=== PATIENT | male | born 1935 | race Caucasian/White ===

== ENCOUNTER 2018-02-15 15:59 | Inpatient (IN) | payer OTHER ==
[~2018-02-15] VITALS: Ht 160 cm; Wt 70.4 kg
[2018-02-15 17:46] LABS: HEMATOCRIT 47.5 % (38.0-50.0); HEMOGLOBIN 16.4 G/DL (12.5-16.6); MCH 36.4 PG (29.0-34.0); MCHC 34.5 G/DL (30.0-36.0); MCV 105.3 FL (86-99); PLATELET COUNT 155 K/uL (156-360); RBC DIS.WIDTH-CV 14.4 % (11.8-14.6); RBC DIS.WIDTH-SD 56.6 % (39-53); RED BLOOD COUNT 4.51 M/uL (4.00-5.50); WHITE BLOOD COUNT 5.9 K/uL (4.1-10.2)
[2018-02-15 17:53] LABS: CHLORIDE 101 mEq/L (99-109); POTASSIUM 4.2 mEq/L (3.7-5.4); SODIUM 139 mEq/L (136-147)
[2018-02-15 17:55] LABS: GLUCOSE 115 mg/dL (70-99)
[2018-02-15 17:59] LABS: CREATININE 1.1 mg/dL (0.6-1.3); GFR ESTIMATE (CALCULATED) > 59 mL/min/ (58.99-99999)
[2018-02-15 18:00] LABS: UREA NITROGEN (BUN) 22 mg/dL (9-23)
[2018-02-15 18:32] LABS: APPEARANCE SL.HAZY ((CLEAR)); BILIRUBIN NEGATIVE; BLOOD SMALL; COLOR YELLOW ((YELLOW)); GLUCOSE (STRIP) NEGATIVE; KETONES 5; LEUKOCYTES NEGATIVE; NITRITE NEGATIVE; PROTEIN (STRIP) 100; SPECIFIC GRAVITY 1.024 (1.000-1.030); UROBILINOGEN 0.2 MG/DL (0.2-1.0)
[2018-02-15 18:38] LABS: BACTERIA NONE SEEN /HPF; EPITHELIAL CELLS RARE /HPF; MUCUS 1+ /LPF; UCUL ADDED? NO; WHITE BLOOD CELLS 0-5 /HPF (0-5)
[2018-02-15] MEDS ORDERED: FLOMAX0.4 MG PO (18:50)
[2018-02-15] MEDS ORDERED: VITAMIN B-1100 MG PO (18:51)
[2018-02-15] MEDS ORDERED: ALTACE10 MG PO (18:51)
[2018-02-15] MEDS ORDERED: LIPITOR80 MG PO (18:51)
[2018-02-15] MEDS ORDERED: SOTALOL120 MG PO (18:51)
[2018-02-15] MEDS ORDERED: ELIQUIS5 MG PO (18:51)
[2018-02-15] MEDS ORDERED: TYLENOL REGULA325 MG PO (18:52)
[2018-02-15 21:04] LABS: HDL CHOLESTEROL 50 MG/DL (Desirable>=40); LDL CHOLESTEROL 62 mg/dL (Desirable<100); NON-HDL CHOLESTEROL 86 mg/dL (Desirable<160); TOTAL CHOLESTEROL 136 mg/dL (Desirable<200); TRIGLYCERIDES 118 MG/DL (Normal: <150)
[2018-02-15 21:28] VITALS: BP 130/77
[2018-02-15 23:52] VITALS: BP 100/55
[2018-02-16 03:29] VITALS: BP 117/65
[2018-02-16 06:27] LABS: HEMATOCRIT 42.7 % (38.0-50.0); MCH 34.9 PG (29.0-34.0); MCV 105.7 FL (86-99); PLATELET COUNT 118 K/uL (156-360); RBC DIS.WIDTH-CV 14.5 % (11.8-14.6); RBC DIS.WIDTH-SD 56.4 % (39-53); RED BLOOD COUNT 4.04 M/uL (4.00-5.50); WHITE BLOOD COUNT 3.9 K/uL (4.1-10.2)
[2018-02-16 06:29] LABS: HEMOGLOBIN 14.1 G/DL (12.5-16.6)
[2018-02-16 06:52] LABS: ALBUMIN 3.4 G/DL (3.2-4.8); ALKALINE PHOSPHATASE 45 IU/L (3-129); ALT (GPT) 20 IU/L (3-49); AST (GOT) 30 IU/L (2-34); CHLORIDE 101 MEQ/L (99-109); CREATININE 1.1 MG/DL (0.6-1.3); GFR ESTIMATE (CALCULATED) > 59 mL/min/ (58.99-99999); POTASSIUM 4.2 MEQ/L (3.7-5.4); SODIUM 135 MEQ/L (136-147); TOTAL BILIRUBIN 0.5 MG/DL (0.0-1.0); UREA NITROGEN (BUN) 26 mg/dL (9-23)
[2018-02-16 06:57] LABS: GLUCOSE 385 mg/dL (70-99)
[2018-02-16 07:22] VITALS: BP 130/74
[2018-02-16 11:03] LABS: HEMOGLOBIN A1c (GLYCOHEMOGLOB) 6.4 % (Below 5.7)
[2018-02-16 15:56] VITALS: BP 91/56
[2018-02-16 20:09] VITALS: BP 100/67
[2018-02-17] VITALS: BP 102/67
[2018-02-17 03:53] VITALS: BP 103/72
[2018-02-17 06:03] LABS: BASOPHIL (%) 0 % (0-1); EOSINOPHIL (%) 0 % (0-5); HEMATOCRIT 42.3 % (38.0-50.0); HEMOGLOBIN 14.3 G/DL (12.5-16.6); IMMATURE GRANULOCYTE (%) 0.4 % (0.0-0.7); LYMPHOCYTE (%) 11.4 % (15-42); LYMPHOCYTE COUNT 0.8 K/uL (1.0-2.8); MCH 35.7 PG (29.0-34.0); MCHC 33.8 G/DL (30.0-36.0); MCV 105.5 FL (86-99); MONOCYTE (%) 3.6 % (3-12); MONOCYTE COUNT 0.3 K/uL (0-0.8); NEUTROPHIL (%) 84.6 % (45-76); NEUTROPHIL COUNT 6.3 K/uL (1.8-6.4); PLATELET COUNT 125 K/uL (156-360); RBC DIS.WIDTH-CV 14.2 % (11.8-14.6); RBC DIS.WIDTH-SD 55.7 % (39-53); RED BLOOD COUNT 4.01 M/uL (4.00-5.50); WHITE BLOOD COUNT 7.4 K/uL (4.1-10.2)
[2018-02-17 06:28] LABS: CHLORIDE 102 MEQ/L (99-109); CREATININE 0.9 MG/DL (0.6-1.3); GFR ESTIMATE (CALCULATED) > 59 mL/min/ (58.99-99999); GLUCOSE 210 mg/dL (70-99); MAGNESIUM 1.9 mg/dl (1.3-2.7); POTASSIUM 4.4 MEQ/L (3.7-5.4); SODIUM 136 MEQ/L (136-147); UREA NITROGEN (BUN) 28 mg/dL (9-23)
[2018-02-17 07:26] VITALS: BP 114/64
[2018-02-17 11:10] VITALS: BP 112/58
[2018-02-17 17:17] VITALS: BP 136/70
[2018-02-17 20:00] VITALS: BP 128/60
[2018-02-18] VITALS: BP 138/66
[2018-02-18 04:00] VITALS: BP 147/73
[2018-02-18 07:01] VITALS: BP 110/74
[2018-02-18 11:18] VITALS: BP 124/72
[2018-02-18] MEDS ORDERED: DOCUSATE SODIU100 MG PO (12:11)
[2018-02-18] MEDS ORDERED: PREDNISONE20 MG PO (12:11)
[2018-02-18] MEDS ORDERED: GUAIFENESI100 MG/5 M PO (12:11)
[2018-02-18] MEDS ORDERED: ASPIR-LOW81 MG PO (12:11)
[2018-02-18] MEDS ORDERED: DUONEB 2.5-0.5 M3 ML AEROSOL (12:12)
== END 2018-02-18 13:16 | DRG 68 ==
LOC: EME 15:59 → EDOF 19:35 → 5SOUTH 19:35 → ENRESERV 19:43 → 5SOUTH 21:04
PROVIDERS: Emergency Medicine; Internal Medicine; Physician Assistant
DX: I65.23 Occlusion and stenosis of bilateral carotid arteries (principal); J44.1 Chronic obstructive pulmonary disease with (acute) exacerbation; J98.11 Atelectasis; I48.1 Persistent atrial fibrillation; W01.0XXA Fall on same level from slipping, tripping and stumbling without subsequent striking against object, initial encounter; F05 Delirium due to known physiological condition; J20.9 Acute bronchitis, unspecified; I36.1 Nonrheumatic tricuspid (valve) insufficiency; E11.65 Type 2 diabetes mellitus with hyperglycemia; E78.00 Pure hypercholesterolemia, unspecified; E78.5 Hyperlipidemia, unspecified; I10 Essential (primary) hypertension; I25.10 Atherosclerotic heart disease of native coronary artery without angina pectoris; I25.2 Old myocardial infarction; I25.5 Ischemic cardiomyopathy; I27.20 Pulmonary hypertension, unspecified; I67.2 Cerebral atherosclerosis; J98.4 Other disorders of lung; N40.0 Benign prostatic hyperplasia without lower urinary tract symptoms; R09.02 Hypoxemia; R47.01 Aphasia; S82.832A Other fracture of upper and lower end of left fibula, initial encounter for closed fracture; T38.0X5A Adverse effect of glucocorticoids and synthetic analogues, initial encounter; F10.10 Alcohol abuse, uncomplicated; Y90.9 Presence of alcohol in blood, level not specified; Y93.K1 Activity, walking an animal; Z79.01 Long term (current) use of anticoagulants; Z86.73 Personal history of transient ischemic attack (TIA), and cerebral infarction without residual deficits; Z87.891 Personal history of nicotine dependence; Z95.0 Presence of cardiac pacemaker; Z95.1 Presence of aortocoronary bypass graft; Z79.82 Long term (current) use of aspirin; Z83.3 Family history of diabetes mellitus; Z82.49 Family history of ischemic heart disease and other diseases of the circulatory system
CPT/HCPCS: 70450; 70496; 70498; 71046; 73600; 73610; 80048; 80053; 80061; 81003; 82948; 83036; 83735; 84484; 85025; 85027; 92523 GN; 93005; 93306; 94640; 94640 76; 94760; 94799; 97530 GO; 97530 GP; 99202; 99281; 99285; J1815; J2920; J7512

== ENCOUNTER 2018-02-18 12:01 | Inpatient (IN) | payer OTHER ==
[~2018-02-18] VITALS: Ht 160 cm; Wt 71.0 kg
[~2018-02-18 12:01] MED LIST: ALTACE10 MG PO; ELIQUIS5 MG PO; FLOMAX0.4 MG PO; LIPITOR80 MG PO; SOTALOL120 MG PO; TYLENOL REGULA325 MG PO; VITAMIN B-1100 MG PO
[2018-02-18] MEDS ORDERED: PREDNISONE20 MG PO (12:11)
[2018-02-18] MEDS ORDERED: ASPIR-LOW81 MG PO (12:11)
[2018-02-18] MEDS ORDERED: GUAIFENESI100 MG/5 M PO (12:11)
[2018-02-18] MEDS ORDERED: DOCUSATE SODIU100 MG PO (12:11)
[2018-02-18] MEDS ORDERED: DUONEB 2.5-0.5 M3 ML AEROSOL (12:12)
[2018-02-18 13:56] VITALS: BP 153/72
[2018-02-18 15:28] VITALS: BP 158/75
[2018-02-18 23:46] VITALS: BP 110/78
[2018-02-19 05:34] VITALS: BP 120/74
[2018-02-19 08:09] LABS: ALBUMIN 3.3 G/DL (3.2-4.8); ALKALINE PHOSPHATASE 42 IU/L (3-129); ALT (GPT) 32 IU/L (3-49); AST (GOT) 29 IU/L (2-34); CHLORIDE 96 MEQ/L (99-109); CREATININE 0.8 MG/DL (0.6-1.3); GFR ESTIMATE (CALCULATED) > 59 mL/min/ (58.99-99999); POTASSIUM 4.3 MEQ/L (3.7-5.4); SODIUM 132 MEQ/L (136-147); TOTAL PROTEIN 6.2 G/DL (6.4-8.3); UREA NITROGEN (BUN) 21 mg/dL (9-23)
[2018-02-19 08:14] LABS: HEMATOCRIT 46.4 % (38.0-50.0); HEMOGLOBIN 15.1 G/DL (12.5-16.6); MCH 33.8 PG (29.0-34.0); MCHC 32.5 G/DL (30.0-36.0); MCV 103.8 FL (86-99); PLATELET COUNT 150 K/uL (156-360); RBC DIS.WIDTH-CV 13.6 % (11.8-14.6); RBC DIS.WIDTH-SD 53.1 % (39-53); RED BLOOD COUNT 4.47 M/uL (4.00-5.50); WHITE BLOOD COUNT 8.4 K/uL (4.1-10.2)
[2018-02-19 08:20] LABS: GLUCOSE 117 mg/dL (70-99)
[2018-02-19 15:24] VITALS: BP 116/58
[2018-02-20 05:45] VITALS: BP 100/71
[2018-02-20 15:28] VITALS: BP 114/60
[2018-02-21 05:41] VITALS: BP 117/67
[2018-02-21 16:04] VITALS: BP 100/56
[2018-02-22 06:56] VITALS: BP 162/77
[2018-02-22] MEDS ORDERED: THERA1 EAC2 PO (12:46)
[2018-02-22] MEDS ORDERED: NOVOLOG 10100 UNITS/ SC (12:47)
[2018-02-22] MEDS ORDERED: STIOLTO RESPIMAT4 GM IH (12:47)
[2018-02-22] MEDS ORDERED: PROVENTIL HFA6.7 GM IH (12:48)
[2018-02-22 17:06] VITALS: BP 132/77
[2018-02-23 05:12] VITALS: BP 131/79
== END 2018-02-23 10:23 | DRG 57 ==
LOC: 3WEST 12:01
PROVIDERS: Physical Medicine & Rehabilitation Pain Medicine
PROC: F07M0ZZ Range of Motion and Joint Mobility Treatment of Musculoskeletal System - Whole Body (ICD-10-PCS; principal; 2018-02-18)
DX: I69.898 Other sequelae of other cerebrovascular disease (principal); I69.820 Aphasia following other cerebrovascular disease; R26.9 Unspecified abnormalities of gait and mobility; I48.2 Chronic atrial fibrillation; I65.23 Occlusion and stenosis of bilateral carotid arteries; I10 Essential (primary) hypertension; E78.5 Hyperlipidemia, unspecified; E11.9 Type 2 diabetes mellitus without complications; S82.892D Other fracture of left lower leg, subsequent encounter for closed fracture with routine healing; W01.0XXD Fall on same level from slipping, tripping and stumbling without subsequent striking against object, subsequent encounter; D69.6 Thrombocytopenia, unspecified; I25.10 Atherosclerotic heart disease of native coronary artery without angina pectoris; I25.5 Ischemic cardiomyopathy; E87.1 Hypo-osmolality and hyponatremia; Z95.0 Presence of cardiac pacemaker; J44.0 Chronic obstructive pulmonary disease with (acute) lower respiratory infection; J20.9 Acute bronchitis, unspecified; J98.11 Atelectasis
CPT/HCPCS: 71045; 80053; 82948; 85027; 94640; 94640 76; 94760; 94799; 97110 GO; 97530 GP; 99202; J1815; J7512

== ENCOUNTER 2018-02-22 21:32 | Inpatient (IN) | payer MEDICARE, OTHER ==
[~2018-02-22] VITALS: Ht 160 cm; Wt 69.8 kg
[~2018-02-22 21:32] MED LIST changes: +ASPIR-LOW81 MG PO; +DOCUSATE SODIU100 MG PO; +DUONEB 2.5-0.5 M3 ML AEROSOL; +GUAIFENESI100 MG/5 M PO; +NOVOLOG 10100 UNITS/ SC; +PREDNISONE20 MG PO; +PROVENTIL HFA6.7 GM IH; +STIOLTO RESPIMAT4 GM IH; +THERA1 EAC2 PO
[2018-02-23 08:19] VITALS: BP 127/63
[2018-02-23 21:52] LABS: C DIFF TOXIN NEGATIVE (NEGATIVE)
[2018-02-24] VITALS (37 sets, daily range): BP systolic 77–141; BP diastolic 54–93
[2018-02-24 10:19] LABS: BASOPHIL (%) 0.3 % (0-1); BASOPHIL COUNT 0.1 K/uL (0-0.1); EOSINOPHIL (%) 0.1 % (0-5); HEMATOCRIT 45.6 % (38.0-50.0); HEMOGLOBIN 15.3 G/DL (12.5-16.6); IMMATURE GRANULOCYTE (%) 0.7 % (0.0-0.7); LYMPHOCYTE (%) 8.5 % (15-42); LYMPHOCYTE COUNT 1.6 K/uL (1.0-2.8); MCH 34.9 PG (29.0-34.0); MCHC 33.6 G/DL (30.0-36.0); MCV 103.9 FL (86-99); MONOCYTE (%) 7.8 % (3-12); MONOCYTE COUNT 1.5 K/uL (0-0.8); NEUTROPHIL (%) 82.6 % (45-76); NEUTROPHIL COUNT 15.4 K/uL (1.8-6.4); PLATELET COUNT 157 K/uL (156-360); RBC DIS.WIDTH-CV 13.6 % (11.8-14.6); RBC DIS.WIDTH-SD 52.4 % (39-53); RED BLOOD COUNT 4.39 M/uL (4.00-5.50); WHITE BLOOD COUNT 18.7 K/uL (4.1-10.2)
[2018-02-24 10:38] LABS: CHLORIDE 99 MEQ/L (99-109); CREATININE 0.8 MG/DL (0.6-1.3); GFR ESTIMATE (CALCULATED) > 59 mL/min/ (58.99-99999); GLUCOSE 155 mg/dL (70-99); POTASSIUM 4.5 MEQ/L (3.7-5.4); SODIUM 132 MEQ/L (136-147); UREA NITROGEN (BUN) 17 mg/dL (9-23)
[2018-02-25] VITALS (21 sets, daily range): BP systolic 73–141; BP diastolic 54–86
[2018-02-26 03:15] VITALS: BP 128/59
[2018-02-26 09:00] VITALS: BP 113/72
[2018-02-26 09:19] LABS: CHLORIDE 98 MEQ/L (99-109); CREATININE 0.7 MG/DL (0.6-1.3); GFR ESTIMATE (CALCULATED) > 59 mL/min/ (58.99-99999); GLUCOSE 141 mg/dL (70-99); POTASSIUM 4.4 MEQ/L (3.7-5.4); SODIUM 136 MEQ/L (136-147); UREA NITROGEN (BUN) 8 mg/dL (9-23)
[2018-02-26 11:42] VITALS: BP 122/57
[2018-02-26 12:23] LABS: BASOPHIL (%) 0.1 % (0-1); EOSINOPHIL (%) 0.1 % (0-5); HEMATOCRIT 37.7 % (38.0-50.0); HEMOGLOBIN 12.6 G/DL (12.5-16.6); IMMATURE GRANULOCYTE (%) 0.6 % (0.0-0.7); LYMPHOCYTE (%) 4.9 % (15-42); LYMPHOCYTE COUNT 0.9 K/uL (1.0-2.8); MCH 34.7 PG (29.0-34.0); MCHC 33.4 G/DL (30.0-36.0); MCV 103.9 FL (86-99); MONOCYTE (%) 7.3 % (3-12); MONOCYTE COUNT 1.4 K/uL (0-0.8); NEUTROPHIL COUNT 16.5 K/uL (1.8-6.4); PLATELET COUNT 148 K/uL (156-360); RBC DIS.WIDTH-CV 13.4 % (11.8-14.6); RED BLOOD COUNT 3.63 M/uL (4.00-5.50)
[2018-02-26 12:45] LABS: CHLORIDE 97 MEQ/L (99-109); CREATININE 0.7 MG/DL (0.6-1.3); GFR ESTIMATE (CALCULATED) > 59 mL/min/ (58.99-99999); GLUCOSE 203 mg/dL (70-99); POTASSIUM 3.8 MEQ/L (3.7-5.4); SODIUM 133 MEQ/L (136-147); UREA NITROGEN (BUN) 8 mg/dL (9-23)
[2018-02-26 15:25] VITALS: BP 111/60
[2018-02-26 20:01] VITALS: BP 118/63
[2018-02-27] VITALS (8 sets, daily range): BP systolic 90–144; BP diastolic 54–74
[2018-02-27 03:42] LABS: APPEARANCE CLEAR ((CLEAR)); BILIRUBIN NEGATIVE; BLOOD NEGATIVE; COLOR YELLOW ((YELLOW)); GLUCOSE (STRIP) NEGATIVE; KETONES 5; LEUKOCYTES NEGATIVE; NITRITE NEGATIVE; PROTEIN (STRIP) NEGATIVE; UCUL ADDED? NO; UROBILINOGEN 0.2 MG/DL (0.2-1.0)
[2018-02-27 04:45] LABS: CHLORIDE 97 mEq/L (99-109); POTASSIUM 3.6 mEq/L (3.7-5.4); SODIUM 133 mEq/L (136-147)
[2018-02-27 04:46] LABS: MAGNESIUM 1.5 mg/dL (1.3-2.7)
[2018-02-27 04:47] LABS: GLUCOSE 150 mg/dL (70-99)
[2018-02-27 04:50] LABS: HEMATOCRIT 36.3 % (38.0-50.0); HEMOGLOBIN 12.7 G/DL (12.5-16.6); MCV 102.8 FL (86-99); PLATELET COUNT 146 K/uL (156-360); RBC DIS.WIDTH-CV 13.5 % (11.8-14.6); RBC DIS.WIDTH-SD 51.5 % (39-53); RED BLOOD COUNT 3.53 M/uL (4.00-5.50); WHITE BLOOD COUNT 14.9 K/uL (4.1-10.2)
[2018-02-27 04:51] LABS: CREATININE 0.7 mg/dL (0.6-1.3); GFR ESTIMATE (CALCULATED) > 59 mL/min/ (58.99-99999)
[2018-02-27 04:52] LABS: UREA NITROGEN (BUN) 6 mg/dL (9-23)
[2018-02-27 10:15] LABS: INTER. NORMALIZED RATIO 1.2
[2018-02-27 10:18] LABS: PTT 27.8 SEC (25-37)
[2018-02-28 03:48] VITALS: BP 127/65
[2018-02-28 05:40] LABS: HEMATOCRIT 36.3 % (38.0-50.0); HEMOGLOBIN 11.9 G/DL (12.5-16.6); MCH 34.1 PG (29.0-34.0); MCHC 32.8 G/DL (30.0-36.0); PLATELET COUNT 159 K/uL (156-360); RBC DIS.WIDTH-CV 13.3 % (11.8-14.6); RBC DIS.WIDTH-SD 51.4 % (39-53); RED BLOOD COUNT 3.49 M/uL (4.00-5.50); WHITE BLOOD COUNT 12.4 K/uL (4.1-10.2)
[2018-02-28 06:07] LABS: CHLORIDE 98 MEQ/L (99-109); CREATININE 0.8 MG/DL (0.6-1.3); GFR ESTIMATE (CALCULATED) > 59 mL/min/ (58.99-99999); GLUCOSE 141 mg/dL (70-99); SODIUM 134 MEQ/L (136-147); UREA NITROGEN (BUN) 9 mg/dL (9-23)
[2018-02-28 06:37] LABS: DIGOXIN 0.9 ng/mL (0.8-2.0)
[2018-02-28 08:41] VITALS: BP 110/62
[2018-02-28 11:48] VITALS: BP 142/63
[2018-02-28 19:47] VITALS: BP 136/76
[2018-02-28 23:47] VITALS: BP 151/82
[2018-03-01 03:50] VITALS: BP 128/79
[2018-03-01 07:53] VITALS: BP 115/66
[2018-03-01 09:09] LABS: BASOPHIL (%) 0.2 % (0-1); EOSINOPHIL (%) 0.9 % (0-5); EOSINOPHIL COUNT 0.1 K/uL (0-0.3); HEMATOCRIT 37.3 % (38.0-50.0); HEMOGLOBIN 12.3 G/DL (12.5-16.6); IMMATURE GRANULOCYTE (%) 0.4 % (0.0-0.7); LYMPHOCYTE (%) 10.2 % (15-42); LYMPHOCYTE COUNT 0.9 K/uL (1.0-2.8); MCH 34.1 PG (29.0-34.0); MCV 103.3 FL (86-99); MONOCYTE (%) 11.5 % (3-12); MONOCYTE COUNT 1.1 K/uL (0-0.8); NEUTROPHIL (%) 76.8 % (45-76); NEUTROPHIL COUNT 7.1 K/uL (1.8-6.4); PLATELET COUNT 195 K/uL (156-360); RBC DIS.WIDTH-CV 13.4 % (11.8-14.6); RED BLOOD COUNT 3.61 M/uL (4.00-5.50); WHITE BLOOD COUNT 9.2 K/uL (4.1-10.2)
[2018-03-01 09:29] LABS: CHLORIDE 99 MEQ/L (99-109); CREATININE 0.7 MG/DL (0.6-1.3); GFR ESTIMATE (CALCULATED) > 59 mL/min/ (58.99-99999); POTASSIUM 4.4 MEQ/L (3.7-5.4); SODIUM 136 MEQ/L (136-147); UREA NITROGEN (BUN) 8 mg/dL (9-23)
[2018-03-01 09:31] LABS: GLUCOSE 105 mg/dL (70-99)
[2018-03-01 11:50] VITALS: BP 121/84
[2018-03-01 17:00] VITALS: BP 141/70
[2018-03-01 23:00] VITALS: BP 156/89
[2018-03-02 02:48] VITALS: BP 130/68
[2018-03-02 05:35] LABS: BASOPHIL (%) 0.1 % (0-1); EOSINOPHIL (%) 0 % (0-5); HEMATOCRIT 38.1 % (38.0-50.0); HEMOGLOBIN 12.6 G/DL (12.5-16.6); IMMATURE GRANULOCYTE (%) 0.5 % (0.0-0.7); LYMPHOCYTE (%) 5.3 % (15-42); LYMPHOCYTE COUNT 0.4 K/uL (1.0-2.8); MCH 34.6 PG (29.0-34.0); MCHC 33.1 G/DL (30.0-36.0); MCV 104.7 FL (86-99); MONOCYTE (%) 1.3 % (3-12); MONOCYTE COUNT 0.1 K/uL (0-0.8); NEUTROPHIL (%) 92.8 % (45-76); NEUTROPHIL COUNT 7.7 K/uL (1.8-6.4); PLATELET COUNT 185 K/uL (156-360); RBC DIS.WIDTH-CV 13.4 % (11.8-14.6); RBC DIS.WIDTH-SD 52.2 % (39-53); RED BLOOD COUNT 3.64 M/uL (4.00-5.50); WHITE BLOOD COUNT 8.3 K/uL (4.1-10.2)
[2018-03-02 06:07] LABS: CHLORIDE 97 MEQ/L (99-109); CREATININE 0.7 MG/DL (0.6-1.3); GFR ESTIMATE (CALCULATED) > 59 mL/min/ (58.99-99999); POTASSIUM 4.9 MEQ/L (3.7-5.4); SODIUM 130 MEQ/L (136-147); UREA NITROGEN (BUN) 12 mg/dL (9-23)
[2018-03-02 06:08] LABS: GLUCOSE 232 mg/dL (70-99)
[2018-03-02 07:00] VITALS: BP 141/66
[2018-03-02 18:14] VITALS: BP 138/78
[2018-03-02 20:01] VITALS: BP 132/65
[2018-03-03 00:04] VITALS: BP 126/64
[2018-03-03 04:44] VITALS: BP 127/65
[2018-03-03 07:26] VITALS: BP 125/60
[2018-03-03 11:05] VITALS: BP 104/69
[2018-03-03] MEDS ORDERED: DIGOXIN125 MCG PO (14:41)
[2018-03-03] MEDS ORDERED: CORDARONE200 MG PO ×2 (14:41→17:26)
[2018-03-03] MEDS ORDERED: METOPROLOL SUCC25 MG PO (14:42)
[2018-03-03] MEDS ORDERED: DOCUSATE SODIU100 MG PO (14:47)
[2018-03-03] MEDS ORDERED: HYDROCODON-ACE1 EAC7 PO (14:47)
[2018-03-03 15:19] VITALS: BP 103/59
[2018-03-03] MEDS ORDERED: PEPCID20 MG PO (17:27)
== END 2018-03-03 16:52 | DRG 38 ==
LOC: ENRESERV 21:32 → 2SOUTH 02-23 07:23 → 4EAST 02-23 07:23 → 4WEST 02-23 07:23 → SDC 02-23 12:49 → EDSTATUS 02-23 13:00 → 2SOUTH 02-23 13:02 → ENRESERV 02-24 05:58 → 4WEST 02-24 07:16 → ENRESERV 02-25 12:48 → CANRESERV 02-25 13:28 → 4EAST 02-25 20:04
PROVIDERS: Hospitalist; Internal Medicine; Internal Medicine Cardiovascular Disease; Physician Assistant; Physician Assistant Medical; Surgery
PROC: 03CL0ZZ Extirpation of Matter from Left Internal Carotid Artery, Open Approach (ICD-10-PCS; principal; 2018-02-23)
PROC: 0QSK04Z Reposition Left Fibula with Internal Fixation Device, Open Approach (ICD-10-PCS; 2018-03-01)
DX: I65.23 Occlusion and stenosis of bilateral carotid arteries (principal); I50.20 Unspecified systolic (congestive) heart failure; I48.92 Unspecified atrial flutter; K62.5 Hemorrhage of anus and rectum; S82.832A Other fracture of upper and lower end of left fibula, initial encounter for closed fracture; J44.9 Chronic obstructive pulmonary disease, unspecified; W19.XXXA Unspecified fall, initial encounter; I48.0 Paroxysmal atrial fibrillation; I25.5 Ischemic cardiomyopathy; I25.10 Atherosclerotic heart disease of native coronary artery without angina pectoris; I11.0 Hypertensive heart disease with heart failure; K64.9 Unspecified hemorrhoids; E78.5 Hyperlipidemia, unspecified; Z79.82 Long term (current) use of aspirin; Z79.01 Long term (current) use of anticoagulants; Z87.891 Personal history of nicotine dependence; Z95.1 Presence of aortocoronary bypass graft; Z86.73 Personal history of transient ischemic attack (TIA), and cerebral infarction without residual deficits
CPT/HCPCS: 73600; 73610; 76000; 80048; 80048 91; 80162; 81003; 82948; 83735; 85025; 85027; 85610; 85730; 87493; 87641; 93005; 94640; 94640 76; 94760; 94799; J0131; J0690; J1100; J1160; J1644; J1650; J2370; J2405; J2720; J2795; J3010; J7040; J7050; J7120; P9045; S0020

== ENCOUNTER 2018-03-03 11:12 | Inpatient (IN) | payer MEDICARE, OTHER ==
[~2018-03-03] VITALS: Ht 160 cm; Wt 73.1 kg
[2018-03-03] MEDS ORDERED: CORDARONE200 MG PO ×2 (14:41→17:26)
[2018-03-03] MEDS ORDERED: DIGOXIN125 MCG PO (14:41)
[2018-03-03] MEDS ORDERED: METOPROLOL SUCC25 MG PO (14:42)
[2018-03-03] MEDS ORDERED: DOCUSATE SODIU100 MG PO (14:47)
[2018-03-03] MEDS ORDERED: HYDROCODON-ACE1 EAC7 PO (14:47)
[2018-03-03 17:22] VITALS: BP 140/67
[2018-03-03] MEDS ORDERED: PEPCID20 MG PO (17:27)
[2018-03-03 23:55] VITALS: BP 104/58
[2018-03-04 05:29] VITALS: BP 109/54
[2018-03-04 07:29] LABS: HEMATOCRIT 39.3 % (38.0-50.0); HEMOGLOBIN 13.3 G/DL (12.5-16.6); MCH 34.1 PG (29.0-34.0); MCHC 33.8 G/DL (30.0-36.0); MCV 100.8 FL (86-99); PLATELET COUNT 195 K/uL (156-360); RBC DIS.WIDTH-CV 13.5 % (11.8-14.6); RBC DIS.WIDTH-SD 49.8 % (39-53); WHITE BLOOD COUNT 10.7 K/uL (4.1-10.2)
[2018-03-04 09:06] LABS: ALBUMIN 2.8 G/DL (3.2-4.8); ALKALINE PHOSPHATASE 60 IU/L (3-129); ALT (GPT) 43 IU/L (3-49); AST (GOT) 35 IU/L (2-34); CHLORIDE 94 MEQ/L (99-109); CREATININE 0.9 MG/DL (0.6-1.3); GFR ESTIMATE (CALCULATED) > 59 mL/min/ (58.99-99999); GLUCOSE 174 mg/dL (70-99); POTASSIUM 4.5 MEQ/L (3.7-5.4); SODIUM 133 MEQ/L (136-147); TOTAL BILIRUBIN 0.8 MG/DL (0.0-1.0); TOTAL PROTEIN 5.7 G/DL (6.4-8.3); UREA NITROGEN (BUN) 14 mg/dL (9-23)
[2018-03-04 15:54] VITALS: BP 108/53
[2018-03-05 05:29] VITALS: BP 100/55
[2018-03-05 15:52] VITALS: BP 102/50
[2018-03-06 04:17] VITALS: BP 121/57
[2018-03-06 15:00] VITALS: BP 96/55
[2018-03-07 05:34] VITALS: BP 103/55
[2018-03-07 15:50] VITALS: BP 90/42
[2018-03-08 05:38] VITALS: BP 111/56
[2018-03-08 15:49] VITALS: BP 89/53
[2018-03-09 05:28] VITALS: BP 115/57
[2018-03-09 15:33] VITALS: BP 97/50
[2018-03-10 04:53] VITALS: BP 93/48
[2018-03-10 09:07] VITALS: BP 100/50
[2018-03-10 14:58] LABS: ALBUMIN 3.3 G/DL (3.2-4.8); ALKALINE PHOSPHATASE 78 IU/L (3-129); ALT (GPT) 29 IU/L (3-49); AST (GOT) 30 IU/L (2-34); CHLORIDE 99 MEQ/L (99-109); CREATININE 0.9 MG/DL (0.6-1.3); GFR ESTIMATE (CALCULATED) > 59 mL/min/ (58.99-99999); GLUCOSE 92 mg/dL (70-99); POTASSIUM 4.7 MEQ/L (3.7-5.4); SODIUM 135 MEQ/L (136-147); UREA NITROGEN (BUN) 14 mg/dL (9-23)
[2018-03-10 14:59] VITALS: BP 105/52
[2018-03-10 14:59] LABS: TOTAL BILIRUBIN 0.6 MG/DL (0.0-1.0); TOTAL PROTEIN 6.6 G/DL (6.4-8.3)
[2018-03-10 15:08] LABS: BASOPHIL (%) 0.5 % (0-1); EOSINOPHIL (%) 1.3 % (0-5); EOSINOPHIL COUNT 0.1 K/uL (0-0.3); HEMATOCRIT 36.4 % (38.0-50.0); IMMATURE GRANULOCYTE (%) 1.2 % (0.0-0.7); LYMPHOCYTE (%) 17.7 % (15-42); LYMPHOCYTE COUNT 1.4 K/uL (1.0-2.8); MONOCYTE (%) 11.6 % (3-12); MONOCYTE COUNT 0.9 K/uL (0-0.8); NEUTROPHIL (%) 67.7 % (45-76); NEUTROPHIL COUNT 5.2 K/uL (1.8-6.4); RBC DIS.WIDTH-CV 14.4 % (11.8-14.6); RBC DIS.WIDTH-SD 55.8 % (39-53); RED BLOOD COUNT 3.43 M/uL (4.00-5.50); WHITE BLOOD COUNT 7.7 K/uL (4.1-10.2)
[2018-03-10 15:17] LABS: MCV 106.1 FL (86-99); PLATELET COUNT 274 K/uL (156-360)
[2018-03-11 05:39] VITALS: BP 103/57
[2018-03-11 15:43] VITALS: BP 116/58
[2018-03-12 06:37] VITALS: BP 150/77
[2018-03-12 06:43] VITALS: BP 108/58
[2018-03-12 16:15] VITALS: BP 145/67
[2018-03-13 05:47] VITALS: BP 131/62
[2018-03-13 15:42] VITALS: BP 118/62
[2018-03-14 04:47] VITALS: BP 103/55
[2018-03-14 15:25] VITALS: BP 129/61
[2018-03-15 06:27] VITALS: BP 142/63
[2018-03-15 15:24] VITALS: BP 120/57
[2018-03-16 06:17] VITALS: BP 126/58
[2018-03-16] MEDS ORDERED: ELIQUIS5 MG PO (11:49)
[2018-03-16] MEDS ORDERED: LIPITOR80 MG PO (11:49)
[2018-03-16] MEDS ORDERED: DIGOXIN125 MCG PO (11:49)
[2018-03-16] MEDS ORDERED: PROVENTIL HFA6.7 GM IH (11:49)
[2018-03-16] MEDS ORDERED: ASPIR-LOW81 MG PO (11:49)
[2018-03-16] MEDS ORDERED: CORDARONE200 MG PO (11:49)
[2018-03-16] MEDS ORDERED: RAMIPRIL1.25 MG PO (11:49)
[2018-03-16] MEDS ORDERED: POLYETHYLENE GL17 GM PO (11:49)
[2018-03-16] MEDS ORDERED: HYDROCODON-ACE1 EAC7 PO (11:49)
[2018-03-16] MEDS ORDERED: STIOLTO RESPIMAT4 GM IH (11:49)
[2018-03-16] MEDS ORDERED: METOPROLOL SUCC25 MG PO (11:49)
[2018-03-16] MEDS ORDERED: SENNA PLUS TAB1 EACH PO (11:49)
[2018-03-16] MEDS ORDERED: FLOMAX0.4 MG PO (11:49)
[2018-03-16] MEDS ORDERED: PEPCID20 MG PO (11:49)
== END 2018-03-16 14:24 | disposition home health service (06) | DRG 560 ==
LOC: 3WEST 11:12 → ENPENDDIS 03-16 → 3WEST 03-16 14:24
PROVIDERS: Hospitalist; Psychiatry & Neurology Neurology
PROC: F07M0ZZ Range of Motion and Joint Mobility Treatment of Musculoskeletal System - Whole Body (ICD-10-PCS; principal; 2018-03-03)
DX: S82.832D Other fracture of upper and lower end of left fibula, subsequent encounter for closed fracture with routine healing (principal); I69.30 Unspecified sequelae of cerebral infarction; R26.9 Unspecified abnormalities of gait and mobility; I50.9 Heart failure, unspecified; I11.0 Hypertensive heart disease with heart failure; I48.91 Unspecified atrial fibrillation; E87.1 Hypo-osmolality and hyponatremia; D53.9 Nutritional anemia, unspecified; J44.9 Chronic obstructive pulmonary disease, unspecified; I25.10 Atherosclerotic heart disease of native coronary artery without angina pectoris; I65.22 Occlusion and stenosis of left carotid artery; G89.18 Other acute postprocedural pain; I95.2 Hypotension due to drugs; K59.00 Constipation, unspecified; E11.9 Type 2 diabetes mellitus without complications; I25.5 Ischemic cardiomyopathy; E78.5 Hyperlipidemia, unspecified; Z87.891 Personal history of nicotine dependence; Z82.49 Family history of ischemic heart disease and other diseases of the circulatory system; Z83.3 Family history of diabetes mellitus; Z98.890 Other specified postprocedural states; Z95.1 Presence of aortocoronary bypass graft; Z79.4 Long term (current) use of insulin
CPT/HCPCS: 74018; 80053; 82607; 85025; 85027; 94640; 94640 76; 94760; 94799; 97110 GO; 97530 GP